=== PATIENT | female | born 1950 | race Caucasian/White ===

== ENCOUNTER → 2020-02-19 10:20 | Outpatient (BNVA) | payer MEDICARE, OTHER, SELFPAY | PROVIDERS: Family Provider Family Medicine; PCP Family Medicine; Visit Provider Nurse Practitioner | DX: G47.00 Insomnia, unspecified (principal); R41.9 Unspecified symptoms and signs involving cognitive functions and awareness; R51 Headache | CPT/HCPCS: 96116; 99204; 99999 ==

== ENCOUNTER → 2020-02-21 11:41 | Outpatient (BNVA) | payer MEDICARE, OTHER, SELFPAY | PROVIDERS: Family Provider Family Medicine; PCP Family Medicine; Referring Provider Family Medicine; Visit Provider Orthopaedic Surgery | DX: M25.552 Pain in left hip (principal) | CPT/HCPCS: 73502 ==

== ENCOUNTER 2020-03-06 10:13 | Outpatient (CLI) | payer MEDICARE, OTHER, SELFPAY ==
[2020-03-06 10:41] LABS: Basophils % 0.5 %; Eosinophils # 0.1 10^3/uL (0.0-0.8); Eosinophils % 2.1 %; Hematocrit 43.5 % (37.0-47.0); Hemoglobin 14.1 g/dL (11.5-15.3); Lymphocytes % 32.7 %; Mean Corpuscular HGB Conc 32.4 g/dL (30.0-36.0); Mean Corpuscular Hemoglobin 32.6 pg (28.0-34.0); Mean Corpuscular Volume 100.7 fL (81-99); Monocytes # 0.6 10^3/uL (0.2-0.9); Monocytes % 10.5 %; Neutrophils # 3.3 10^3/uL (1.8-7.7); Nucleated Red Blood Cells % 0 %; Platelet Count 154 10^3/cmm (130-400); Red Blood Count 4.32 10^6/uL (4.1-5.3); Red Cell Distribution Width 11.9 % (12.1-15.1); White Blood Count 6.1 10^3/uL (4.0-10.0)
[2020-03-06 11:17] LABS: Alanine Aminotransferase 15 U/L (0-33); Albumin Level 4.5 g/dL (3.5-5.2); Alkaline Phosphatase 83 IU/L (35-105); Anion Gap 14.1 (5-19); Aspartate Amino Transferase 26 U/L (0-32); Blood Urea Nitrogen 15 mg/dL (8-23); Calcium 9.8 mg/dL (8.5-10.5); Carbon Dioxide 29 mmol/L (22-29); Chloride 103 mmol/L (98-107); Globulin 2.3 g/dL (1.3-4.6); Glomerular Filtration Rate 71.1 mL/min (90-130); Glucose 102 mg/dL (65-115); Osmolality Calculated 290 mOsm/kg (285-295); Potassium 4.1 mmol/L (3.5-5.1); Sodium 142 mmol/L (136-145); Thyroid Stimulating Hormone 2.36 uIU/mL (0.27-4.20); Total Bilirubin 0.3 mg/dL (0.15-1.2); Total Protein 6.8 g/dL (6.6-8.7); Vitamin B12 455 pg/mL (232-1245)
== END 2020-03-06 10:14 | disposition home or self-care (01) ==
LOC: LAB 10:19
PROVIDERS: PCP Family Medicine; Visit Provider Nurse Practitioner
DX: R41.3 Other amnesia (principal)
CPT/HCPCS: 36415; 80053; 82607; 84443; 85025

== ENCOUNTER 2020-03-07 12:58 | Outpatient (CLI) | payer MEDICARE, OTHER, SELFPAY ==
--- NOTE | 2020-03-07 13:08 | MR_ITS ---
WS: [id number] MRI LUMBAR SPINE NONCONTRAST TECHNIQUE: Sagittal T1, T2 and STIR imaging. Axial T1 and T2 imaging. CLINICAL INFORMATION: SACROCOCCYGEAL DISORDERS COMPARISON: None. FINDINGS: Mild lumbar curve. No acute compression. Mild disc bulging throughout the lumbar spine. No high-grade central canal stenosis. L1-L2: Mild annular bulging with a tiny central protrusion. Spinal canal and foramen are patent. Mild facet arthropathy. L2-L3: Mild annular bulging with slight narrowing of the right subarticular recess. Mild facet arthro jonathon. Spinal canal and foramen are patent. L3-L4: Mild annular bulging with narrowing of the subarticular recess bilaterally. Narrowing of the l eft greater than right subarticular recess. Encroachment traversing L4 nerve roots. Mild left and no significant right foraminal narrowing. Mild facet arthropathy. L4-L5: Mild disc bulging with slight impingement on the left greater than right subarticular recess a nd traversing left L5 nerve root. Mild to moderate left and no significant right foraminal narrowing. Moderate facet arthropathy. L5-S1: Mild annular bulging. Slight effacement of ventral thecal sac. Mild left greater than right [place] foraminal narrowing. Moderate facet arthropathy. Prior postoperative changes anterior cervical fusion C5-C7 MR/MR lumbar spine wo con* [id number] IMPRESSION: 1. Mild lumbar curve. No acute compression. 2. Mild central canal stenosis L3-L4 L4-L5 due to disc bulging with facet arth ropathy. 3. Impingement on the left greater than right subarticular recess L3-L4 and L4 -L5. Recommend correlation for left L5 nerve root symptoms. 4. Slight narrowing of the right L2-3 subarticular recess. 5. Moderate bony foraminal narrowing worse at left L4-L5 and bilateral L5-S1.
--- NOTE | 2020-03-07 15:15 | XR_ITS ---
WS: [id number] LUMBAR SPINE FLEXION AND EXTENSION TECHNIQUE: 3 views of the lumbar spine: Lateral neutral, flexion, and extension views. CLINICAL INFORMATION: SI joint pain COMPARISON: None. FINDINGS: Normal lumbar alignment on the neutral view. No instability on the flexion and extension views. Moderate spondylitic changes. Disc space narrowing worse at L2-L3 L4-L5 and L5-S1. XR/XR lumbar spine f/e only [id number] IMPRESSION: No instability on flexion-extension
== END 2020-03-07 12:59 | disposition home or self-care (01) ==
LOC: RADWPI 13:04
PROVIDERS: Family Provider Family Medicine; PCP Family Medicine; Visit Provider Orthopaedic Surgery
DX: M53.3 Sacrococcygeal disorders, not elsewhere classified (principal); G89.29 Other chronic pain; M51.26 Other intervertebral disc displacement, lumbar region
CPT/HCPCS: 72120; 72148

== ENCOUNTER 2020-03-07 13:06 | Outpatient (CLI) | payer MEDICARE, OTHER, SELFPAY ==
--- NOTE | 2020-03-07 13:11 | MR_ITS ---
WS: [id number] MRI HEAD WITH CONTRAST TECHNIQUE: Sagittal T1, T2 axial, T2 axial FLAIR, axial susceptibility weighted imaging, axial diffus ion weighted images, and coronal T2 images were obtained. Pre and post-T1 axial and post T1 coronal i mages. ADC and FSPGR images. CLINICAL INFORMATION: MEMORY LOSS, RECENT ONSET COMPARISON: None. FINDINGS: No evidence of restricted diffusion to suggest acute ischemia. Ventricular system and basal cisterns are patent. Minimal small vessel changes. Moderate parenchymal volume loss. Normal posterior fossa. N ormal vascular flow voids at the skull base. No extra-axial fluid collections. No evidence of mass or mass effect. Partial opacification of the right mastoid air cells. Paranasal sinuses are well aerate d. Benign partially empty sella. Moderate symmetric atrophy involving the temporal lobes and hippocampal formations. No abnormal intra cranial enhancement. Normal dural venous sinuses. No hemosiderin on susceptibly weighted images. MR/MR head wo/w con [id number] IMPRESSION: 1. No evidence of restricted diffusion to suggest acute ischemia. 2. Minimal small vessel changes with moderate parenchymal volume loss. 3. Moderate symmetric atrophy involving the temporal lobes and hippocampal for mations. 4. No abnormal gadolinium enhancement. 5. No hemosiderin on the susceptibly weighted images.
== END 2020-03-07 13:07 | disposition home or self-care (01) ==
LOC: RADWPI 13:08
PROVIDERS: Family Provider Family Medicine; PCP Family Medicine; Visit Provider Nurse Practitioner
DX: R41.3 Other amnesia (principal); G31.9 Degenerative disease of nervous system, unspecified
CPT/HCPCS: 70553; A9579

== ENCOUNTER → 2020-03-27 08:06 | Outpatient (BNVA) | payer MEDICARE, OTHER, SELFPAY | PROVIDERS: Family Provider Family Medicine; PCP Family Medicine; Visit Provider Nurse Practitioner | DX: I63.9 Cerebral infarction, unspecified (principal); R41.3 Other amnesia | CPT/HCPCS: 99213 ==

== ENCOUNTER 2020-09-30 11:16 | Outpatient (CLI) | payer MEDICARE, OTHER, SELFPAY ==
--- NOTE | 2020-09-30 11:25 | MM_ITS ---
WS: [id number] BILATERAL SCREENING DIGITAL MAMMOGRAM WITH CAD HISTORY: SCREENING COMPARISON: 08/09/2019, 11/01/2017 and 02/27/2014 Bilateral CC and MLO views submitted. Computer aided detection analyzed. Breast composition: The breasts are heterogeneously dense, which may obscure small masses. No suspici ous masses, microcalcifications or architectural distortion. Bilateral asymmetries and calcifications are similar to the prior study. RIGHT breast asymmetry posteriorly is unchanged since 2013. MM/[place] [id number] IMPRESSION: BI-RADS: 2-Benign FOLLOW UP: 1 Year Follow-up
== END 2020-09-30 11:17 | disposition home or self-care (01) ==
LOC: RADSHAW 11:21
PROVIDERS: Family Provider Family Medicine; PCP Family Medicine; Visit Provider Family Medicine
DX: Z12.31 Encounter for screening mammogram for malignant neoplasm of breast (principal)
CPT/HCPCS: 77067

== ENCOUNTER 2021-12-25 12:38 | Outpatient (CLI) | payer MEDICARE, OTHER, SELFPAY ==
--- NOTE | 2021-12-25 12:53 | MM_ITS ---
WS: [id number] Bilateral screening 3D tomosynthesis digital mammogram, 12/25/2021 Clinical Data: SCREEN Comparison: 09/30/2020, 08/09/2019, 11/01/2017, 10/28/2016, 07/12/2015, 02/27/2014, 01/24/2013, 05/15/2011, 03/31/2010. Findings: The breast parenchymal pattern shows heterogeneous density. No spiculated masses or clustered calci fications are seen. There are no secondary signs of carcinoma. MM/[place] [id number] Impression: 1. Negative bilateral mammogram unchanged. 2. Recommend annual screening mammograms. BIRADS: 1-Negative FOLLOW UP: 1 Year Follow-up The CAD checker [employer] was used.
== END 2021-12-25 12:39 | disposition home or self-care (01) ==
LOC: RADSHAW 12:43
PROVIDERS: PCP Family Medicine; Visit Provider Family Medicine
DX: Z12.31 Encounter for screening mammogram for malignant neoplasm of breast (principal)
CPT/HCPCS: 77063; 77067

== ENCOUNTER 2023-05-13 13:37 | Outpatient (CLI) | payer MEDICARE, OTHER, SELFPAY ==
--- NOTE | 2023-05-13 13:53 | MM_ITS ---
WS: [id number] VIEWS: MLO and CC views both breasts. 3D digital tomosynthesis is also included in this exam. Comparison made with prior exam of 07/12/2015, 10/28/2016, 08/09/2019, 09/30/2020, 12/25/2021.. Findings: There was no sign of mass, architectural distortion or suspicious calcification in either breast. The breasts are heterogeneously dense which may obscure small masses Impression: MM/[place] [id number] BI-RADS: 2-Benign FOLLOW-UP: 1 Year Follow-up This mammogram was also analyzed by the Computer Aided Detection System R2 Imag e [employer].
== END 2023-05-13 13:38 | disposition home or self-care (01) ==
LOC: RAD 13:43 → MOBLMAM 13:53 → RAD 13:54
PROVIDERS: PCP Family Medicine; Visit Provider Family Medicine
DX: Z12.31 Encounter for screening mammogram for malignant neoplasm of breast (principal)
CPT/HCPCS: 77063; 77067